=== PATIENT | male | born 1985 | race Caucasian/White ===

== ENCOUNTER 2018-03-19 18:31 | Emergency (ER) | payer BC ==
[2018-03-19] MEDS ORDERED: Lidocaine 2% Viscous Solution 15 ML Cup PO ONE (19:47)
[2018-03-19] MEDS ORDERED: Benzocaine 20% Topical Spray UD MUCMEM ONE (19:47)
--- NOTE | 2018-03-19 19:51 | EDM.PDOC ---
ED HPI GENERAL MEDICAL PROBLEM - General Chief Complaint: ENT Problem Stated Complaint: TOOTH ADSCESS Time Seen by Provider: 03/19/18 19:36 - History of Present Illness INITIAL COMMENTS - FREE TEXT/NARRATIVE: HISTORY AND PHYSICAL: History of present illness: The patient is a healthy 32-year-old male who presents with complaints of one year of dental issues after he broke apart of his right lower molar off. He has not seen a dentist for this and presents because he's having pain and he said that there was some swelling of his face. The patient said that there were some some swelling of the gum and he "poked it with a staple". He has no systemic complaints Review of systems: As per history of present illness and below otherwise all systems reviewed and negative. Past medical history: As per history of present illness and as reviewed below otherwise noncontributory. Surgical history: As per history of present illness and as reviewed below otherwise noncontributory. Social history: No reported history of drug or alcohol abuse. Family history: As per history of present illness and as reviewed below otherwise noncontributory. Physical exam: General: Well-developed well-nourished man who is nontoxic and vital signs are noted by me HEENT: Atraumatic, normocephalic, pupils reactive, negative for conjunctival pallor or scleral icterus, mucous membranes moist, throat clear, neck supple, nontender, trachea midline. There is no gross facial swelling appreciated and no cervical adenopathy. Teeth overall are in good condition with the exception of the right lower molar area where there is a small fracture of tooth #30 minimal swelling around the gum but no fluctuance. Lungs: Clear to auscultation, breath sounds equal bilaterally, chest nontender. Heart: S1S2, regular rate and rhythm no overt murmurs Abdomen: Soft, nondistended, nontender.NABS Pelvis: Deferred Genitourinary: Deferred. Rectal: Deferred. Extremities: Atraumatic, negative for cords or calf pain. Neurovascular unremarkable. Neuro: Awake, alert, oriented. Cranial nerves II through XII unremarkable. Cerebellum unremarkable. Motor and sensory unremarkable throughout. Exam nonfocal. Diagnostics: [] Therapeutics: Dental balls Impression: Dental pain/early infection Definitive disposition and diagnosis as appropriate pending reevaluation and review of above. dental pain Pain Score (Numeric/FACES): 10 - Related Data Allergies Allergy/AdvReac Type Severity Reaction Status Date / Time No Known Allergies Allergy Verified 03/19/18 19:32 Home Meds: Home Meds . [No Known Home Meds] 03/19/18 [History] Past Medical History HEENT History: Reports: None Cardiovascular History: Reports: None Respiratory History: Reports: None Gastrointestinal History: Reports: None Genitourinary History: Reports: None Musculoskeletal History: Reports: None Neurological History: Reports: None Psychiatric History: Reports: None Endocrine/Metabolic History: Reports: None Hematologic History: Reports: None Immunologic History: Reports: None Oncologic (Cancer) History: Reports: None Dermatologic History: Reports: None - Infectious Disease History Infectious Disease History: Reports: None - Past Surgical History Head Surgeries/Procedures: Reports: None Musculoskeletal Surgical History: Reports: Other (See Below) Other Musculoskeletal Surgeries/Procedures:: fracture jaw, nose & ribs Social & Family History - Family History Family Medical History: Noncontributory - Tobacco Use Smoking Status *Q: Current Some Day Smoker Years of Tobacco use: 15 Packs/Tins Daily: 1 - Recreational Drug Use Recreational Drug Use: No ED ROS GENERAL - Review of Systems Review Of Systems: ROS reveals no pertinent complaints other than HPI. ED EXAM, GENERAL - Physical Exam Exam: See Below (See dictation) Course - Vital Signs Last Recorded V/S: Last Vital Signs Temp 36.8 C 03/19/18 19:32 Pulse 88 03/19/18 19:32 Resp 18 03/19/18 19:32 BP 150/94 H 03/19/18 19:32 Pulse Ox 98 03/19/18 19:32 - Orders/Labs/Meds Orders: Active Orders 24 hr Category Date Time Status Benzocaine [Hurricaine One 20%] Med 03/19/18 19:47 Once 2 each MUCMEM ONETIME ONE Lidocaine 2% [Xylocaine 2% Viscous] Med 03/19/18 19:47 Once 15 ml PO ONETIME ONE Departure - Departure Time of Disposition: 19:50 Disposition: Home, Self-Care 01 Condition: Good Clinical Impression: Dental infection, Pain, dental - Discharge Information Referrals: PCP,None [Primary Care Provider] - Additional Instructions: The following information is given to patients seen in the emergency department who are being discharged to home. This information is to outline your options for follow-up care. We provide all patients seen in our emergency department with a follow-up referral. The need for follow-up, as well as the timing and circumstances, are variable depending upon the specifics of your emergency department visit. If you don't have a primary care physician on staff, we will provide you with a referral. We always advise you to contact your personal physician following an emergency department visit to inform them of the circumstance of the visit and for follow-up with them and/or the need for any referrals to a consulting specialist. The emergency department will also refer you to a specialist when appropriate. This referral assures that you have the opportunity for followup care with a specialist. All of these measure are taken in an effort to provide you with optimal care, which includes your followup. Under all circumstances we always encourage you to contact your private physician who remains a resource for coordinating your care. When calling for followup care, please make the office aware that this follow-up is from your recent emergency room visit. If for any reason you are refused follow-up, please contact the [facility] emergency department at and ask to speak to the emergency department charge nurse. [facility] Primary care- Internal [place] [address] Please use list of dentists you have been given here in the ED and try to connect with a local dentist for definitive care and treatment of this tooth problem. Use dental balls as shown and as needed as well as [id number] Tylenol and ibuprofen for pain. Take antibiotics you have been prescribed until they're finished. Return to ER as needed and as discussed. If your face become swollen please place ice on it - My Orders Last 24 Hours: My Active Orders 03/19/18 19:47 Benzocaine [Hurricaine One 20%] 2 each MUCMEM ONETIME ONE Lidocaine 2% [Xylocaine 2% Viscous] 15 ml PO ONETIME ONE - Assessment/Plan Last 24 Hours: My Active Orders 03/19/18 19:47 Benzocaine [Hurricaine One 20%] 2 each MUCMEM ONETIME ONE Lidocaine 2% [Xylocaine 2% Viscous] 15 ml PO ONETIME ONE
== END 2018-03-19 20:08 | disposition home or self-care (01) ==
LOC: MW.ED 18:31
DX: K04.7 Periapical abscess without sinus (principal); F17.210 Nicotine dependence, cigarettes, uncomplicated
CPT/HCPCS: 99282; A9270

== ENCOUNTER 2018-03-19 21:08 | Emergency (ER) | payer BC | END 2018-03-19 22:20 | disposition left against medical advice (07) | LOC: MW.ED 21:08 | DX: Z53.21 Procedure and treatment not carried out due to patient leaving prior to being seen by health care provider (principal) ==

== ENCOUNTER 2018-05-20 13:11 | Emergency (ER) | payer BC ==
[2018-05-20] MEDS ORDERED: Lidocaine 2% Viscous Solution 15 ML Cup PO ONE (13:30)
[2018-05-20] MEDS ORDERED: Benzocaine 20% Topical Spray UD MUCMEM ONE (13:30)
--- NOTE | 2018-05-20 13:35 | EDM.PDOC ---
ED HPI GENERAL MEDICAL PROBLEM - General Chief Complaint: ENT Problem Stated Complaint: TOTTHACHE ISSUES Time Seen by Provider: 05/20/18 13:25 - History of Present Illness INITIAL COMMENTS - FREE TEXT/NARRATIVE: HISTORY AND PHYSICAL: History of present illness: The patient is a healthy 32-year-old male who is here for recurrent right lower tooth pain and problems for which I saw him back in March. He admits that he put it off and procrastinated and did not go to see the dentist and thought that after the infection in January that "the nerve was " but he was chewing some gum and he thinks he aggravated the area. He has some minimal swelling at the gum area but no fevers chills sore throat and only has slight facial swelling. He made an appointment to see the dentist next week. He is here because he knows he needs antibiotics that he can get the tooth evaluated by the dentist. Review of systems: As per history of present illness and below otherwise all systems reviewed and negative. Past medical history: As per history of present illness and as reviewed below otherwise noncontributory. Surgical history: As per history of present illness and as reviewed below otherwise noncontributory. Social history: No reported history of drug or alcohol abuse. Family history: As per history of present illness and as reviewed below otherwise noncontributory. Physical exam: General: Well-developed well-nourished man who is nontoxic and vital signs are noted by me. There is no gross facial swelling on the right jaw area HEENT: Atraumatic, normocephalic, pupils reactive, negative for conjunctival pallor or scleral icterus, mucous membranes moist, throat clear, neck supple, nontender, trachea midline. There is some anterior cervical adenopathy on the right but no nuchal rigidity or posterior adenopathy. There is only one area of gross dental disease at tooth #31 where there is a fracture of the corner of the tooth and some tenderness there and some mild gum swelling but no fluctuance. Lungs: Clear to auscultation, breath sounds equal bilaterally, chest nontender. Heart: S1S2, regular rate and rhythm no overt murmurs Abdomen: Soft, nondistended, nontender. NABS Pelvis: Deferred Genitourinary: Deferred. Rectal: Deferred. Extremities: Atraumatic, negative for cords or calf pain. Neurovascular unremarkable. Neuro: Awake, alert, oriented. Cranial nerves II through XII unremarkable. Cerebellum unremarkable. Motor and sensory unremarkable throughout. Exam nonfocal. Diagnostics: [] Therapeutics: Dental balls Impression: Dental pain/dental fracture/dental Caries Definitive disposition and diagnosis as appropriate pending reevaluation and review of above. Right Lower Oral/Mouth Pain Score (Numeric/FACES): 7 - Related Data Allergies Allergy/AdvReac Type Severity Reaction Status Date / Time No Known Allergies Allergy Verified 05/20/18 13:28 Home Meds: Home Meds . [No Known Home Meds] 03/19/18 [History] Past Medical History HEENT History: Reports: None Cardiovascular History: Reports: None Respiratory History: Reports: None Gastrointestinal History: Reports: None Genitourinary History: Reports: None Musculoskeletal History: Reports: None Neurological History: Reports: None Psychiatric History: Reports: None Endocrine/Metabolic History: Reports: None Hematologic History: Reports: None Immunologic History: Reports: None Oncologic (Cancer) History: Reports: None Dermatologic History: Reports: None - Infectious Disease History Infectious Disease History: Reports: None - Past Surgical History Head Surgeries/Procedures: Reports: None Musculoskeletal Surgical History: Reports: Other (See Below) Other Musculoskeletal Surgeries/Procedures:: fracture jaw, nose & ribs Social & Family History - Family History Family Medical History: Noncontributory ED ROS GENERAL - Review of Systems Review Of Systems: ROS reveals no pertinent complaints other than HPI. ED EXAM, GENERAL - Physical Exam Exam: See Below (See dictation) Course - Vital Signs Last Recorded V/S: Last Vital Signs Temp 36.4 C 05/20/18 13:28 Pulse 67 05/20/18 13:28 Resp 18 05/20/18 13:28 BP 164/92 H 05/20/18 13:28 Pulse Ox 98 05/20/18 13:28 - Orders/Labs/Meds Meds: Medications Discontinued Medications Generic Name Dose Route Start Last Admin Trade Name Gianni PRN Reason Stop Dose Admin Benzocaine 2 each 05/20/18 13:30 Hurricaine One 20% MUCMEM 05/20/18 13:31 ONETIME ONE Lidocaine HCl 15 ml 05/20/18 13:30 Xylocaine 2% Viscous PO 05/20/18 13:31 ONETIME ONE Departure - Departure Time of Disposition: 13:34 Disposition: Home, Self-Care 01 Condition: Good Clinical Impression: Pain, dental - Discharge Information Referrals: PCP,None [Primary Care Provider] - Additional Instructions: The following information is given to patients seen in the emergency department who are being discharged to home. This information is to outline your options for follow-up care. We provide all patients seen in our emergency department with a follow-up referral. The need for follow-up, as well as the timing and circumstances, are variable depending upon the specifics of your emergency department visit. If you don't have a primary care physician on staff, we will provide you with a referral. We always advise you to contact your personal physician following an emergency department visit to inform them of the circumstance of the visit and for follow-up with them and/or the need for any referrals to a consulting specialist. The emergency department will also refer you to a specialist when appropriate. This referral assures that you have the opportunity for followup care with a specialist. All of these measure are taken in an effort to provide you with optimal care, which includes your followup. Under all circumstances we always encourage you to contact your private physician who remains a resource for coordinating your care. When calling for followup care, please make the office aware that this follow-up is from your recent emergency room visit. If for any reason you are refused follow-up, please contact the [facility] emergency department at and ask to speak to the emergency department charge nurse. [facility] Primary care- Internal Medicine and Family [address] [id number] These use dental balls as shown to you in the ED for pain and also use over-the- counter ibuprofen and Motrin. Please fill the prescription for antibiotics and take until they're finished. If your face starts swelling apply ice to the area. Please keep your appointment with the dentist that you have scheduled next week and return to ER as needed and as discussed
== END 2018-05-20 13:56 | disposition home or self-care (01) ==
LOC: MW.ED 13:11
DX: K08.89 Other specified disorders of teeth and supporting structures (principal)
CPT/HCPCS: 99283; A9270-GY

== ENCOUNTER 2019-04-22 06:33 | Emergency (ER) | payer SELFPAY ==
[2019-04-22] MEDS ORDERED: Sodium Chloride 0.9% 2.5 ML Syringe FLUSH PRN (06:46)
[2019-04-22] MEDS ORDERED: Sodium Chloride 0.9% 10 ML Syringe FLUSH PRN (06:46)
[2019-04-22] MEDS ORDERED: Ondansetron 4 MG/2 ML SDV IVPUSH ONE (06:46)
[2019-04-22] MEDS ORDERED: Sodium Chloride 0.9% 1,000 ML IV ONE ×2 (06:47→07:39)
--- NOTE | 2019-04-22 06:49 | EDM.PDOC ---
ED HPI GENERAL MEDICAL PROBLEM - General Chief Complaint: Gastrointestinal Problem Stated Complaint: VOMITING Time Seen by Provider: 04/22/19 06:43 Source of Information: Reports: Patient History Limitations: Reports: No Limitations - History of Present Illness INITIAL COMMENTS - FREE TEXT/NARRATIVE: History of present illness: []Patient has had intermittent vomiting and diarrhea for the last 5 days. French food last night started vomiting again this morning. She has been having cold chills, denies any abdominal pain at this time. Review of systems: As per history of present illness and below otherwise all systems reviewed and negative. Past medical history: As per history of present illness and as reviewed below otherwise noncontributory. Surgical history: As per history of present illness and as reviewed below otherwise noncontributory. Social history: No reported history of drug or alcohol abuse. Family history: As per history of present illness and as reviewed below otherwise noncontributory. Physical exam: General: Well developed, well nourished in NAD HEENT: Atraumatic, normocephalic, pupils reactive, negative for conjunctival pallor or scleral icterus, mucous membranes moist, throat clear, neck supple, nontender, trachea midline. Lungs: Clear to auscultation, breath sounds equal bilaterally, chest nontender. Heart: S1S2, regular, negative for clicks, rubs, or JVD. Abdomen: NABS, Soft, nondistended, nontender. Negative for masses or hepatosplenomegaly. Negative for costovertebral tenderness. Pelvis: Stable nontender. Genitourinary: Deferred. Rectal: Deferred. Extremities: Atraumatic, negative for cords or calf pain. Neurovascular unremarkable. Neuro: Awake, alert, oriented. Cranial nerves II through XII unremarkable. Cerebellum unremarkable. Motor and sensory unremarkable throughout. Exam nonfocal. Skin:warm and dry Diagnostics: CBC, chemistry, lipase Therapeutics: 2 L normal saline ED Course: Stable Impression: Vomiting, diarrhea Prescriptions: Zofran Plan: Take meds as directed, follow up with your primary care physician, return to ER if symptoms worsen or change. Definitive disposition and diagnosis as appropriate pending reevaluation and review of above. - Related Data Allergies Allergy/AdvReac Type Severity Reaction Status Date / Time No Known Allergies Allergy Verified 04/22/19 06:40 Home Meds: Home Meds Lisinopril 30 mg PO DAILY 04/22/19 [History] Ondansetron HCl [Zofran] 4 mg PO Q4HR #12 tablet 04/22/19 [Rx] Past Medical History HEENT History: Reports: None Cardiovascular History: Reports: None Respiratory History: Reports: None Gastrointestinal History: Reports: None Genitourinary History: Reports: None Musculoskeletal History: Reports: None Neurological History: Reports: None Psychiatric History: Reports: None Endocrine/Metabolic History: Reports: None Hematologic History: Reports: None Immunologic History: Reports: None Oncologic (Cancer) History: Reports: None Dermatologic History: Reports: None - Infectious Disease History Infectious Disease History: Reports: Chicken Pox - Past Surgical History Head Surgeries/Procedures: Reports: None Musculoskeletal Surgical History: Reports: Other (See Below) Other Musculoskeletal Surgeries/Procedures:: fracture jaw, nose & ribs Social & Family History - Family History Family Medical History: Noncontributory - Tobacco Use Smoking Status *Q: Current Some Day Smoker Years of Tobacco use: 10 Packs/Tins Daily: 0.5 - Caffeine Use Caffeine Use: Reports: Energy Drinks - Recreational Drug Use Recreational Drug Use: No ED ROS GENERAL - Review of Systems Review Of Systems: ROS reveals no pertinent complaints other than HPI. ED EXAM, GI/ABD - Physical Exam Exam: See Below (See history of present illness) Course - Vital Signs Last Recorded V/S: Last Vital Signs Temp 96.0 F 04/22/19 06:40 Pulse 54 L 04/22/19 08:01 Resp 16 04/22/19 08:01 BP 127/67 04/22/19 08:01 Pulse Ox 98 04/22/19 08:01 - Orders/Labs/Meds Orders: Active Orders 24 hr Category Date Time Status Sodium Chloride 0.9% [Normal Saline] 1,000 ml Med 04/22/19 07:39 Active IV .Bolus Sodium Chloride 0.9% [Saline Flush] Med 04/22/19 06:46 Active 10 ml FLUSH ASDIRECTED PRN Sodium Chloride 0.9% [Saline Flush] Med 04/22/19 06:46 Active 2.5 ml FLUSH ASDIRECTED PRN Saline Lock Insert [OM.PC] Stat Oth 04/22/19 06:46 Ordered Medication Orders Sodium Chloride (Normal Saline) 1,000 mls @ 999 mls/hr IV .Bolus ONE Stop: 04/22/19 08:39 Last Admin: 04/22/19 08:01 Dose: 999 mls/hr Sodium Chloride (Saline Flush) 10 ml FLUSH ASDIRECTED PRN PRN Reason: Keep Vein Open Last Admin: 04/22/19 07:11 Dose: 10 ml Sodium Chloride (Saline Flush) 2.5 ml FLUSH ASDIRECTED PRN PRN Reason: Keep Vein Open Last Admin: 04/22/19 07:11 Dose: 2.5 ml Labs: Laboratory Tests 04/22/19 04/22/19 Range/Units 07:05 07:05 WBC 5.38 (4.0-11.0) K/uL RBC 5.02 (4.50-5.90) M/uL Hgb 15.5 (13.0-17.0) g/dL Hct 44.5 (38.0-50.0) % MCV 88.6 (80.0-98.0) fL MCH 30.9 (27.0-32.0) pg MCHC 34.8 (31.0-37.0) g/dL RDW Std Deviation 40.5 (28.0-62.0) fl RDW Coeff of Dave 13 (11.0-15.0) % Plt Count 192 (150-400) K/uL MPV 10.70 (7.40-12.00) fL Neut % (Auto) 48.8 (48.0-80.0) % Lymph % (Auto) 34.0 (16.0-40.0) % Taylor % (Auto) 11.2 (0.0-15.0) % Eos % (Auto) 5.4 (0.0-7.0) % Baso % (Auto) 0.6 (0.0-1.5) % Neut # (Auto) 2.6 (1.4-5.7) K/uL Lymph # (Auto) 1.8 (0.6-2.4) K/uL Taylor # (Auto) 0.6 (0.0-0.8) K/uL Eos # (Auto) 0.3 (0.0-0.7) K/uL Baso # (Auto) 0.0 (0.0-0.1) K/uL Nucleated RBC % 0.0 /100WBC Nucleated RBCs # 0 K/uL Sodium 141 (136-148) mmol/L Potassium 4.1 (3.5-5.1) mmol/L Chloride 105 (98-107) mmol/L Carbon Dioxide 27.9 (21.0-32.0) mmol/L BUN 13 (7.0-18.0) mg/dL Creatinine 0.9 (0.8-1.3) mg/dL Est Cr Clr Drug Dosing 131.93 mL/min Estimated GFR (MDRD) > 60.0 ml/min Glucose 111 H (74-106) mg/dL Calcium 8.8 (8.5-10.1) mg/dL Total Bilirubin 0.4 (0.2-1.0) mg/dL AST 32 (15-37) IU/L ALT 46 (14-63) IU/L Alkaline Phosphatase 82 (46-116) U/L Total Protein 6.9 (6.4-8.2) g/dL Albumin 3.9 (3.4-5.0) g/dL Globulin 3.0 (2.6-4.0) g/dL Albumin/Globulin Ratio 1.3 (0.9-1.6) Lipase 113 (73-393) U/L Meds: Medications Generic Name Dose Route Start Last Admin Trade Name Freq PRN Reason Stop Dose Admin Sodium Chloride 1,000 mls @ 999 mls/hr 04/22/19 07:39 04/22/19 08:01 Normal Saline IV 04/22/19 08:39 999 mls/hr .Bolus ONE Administration Sodium Chloride 10 ml 04/22/19 06:46 04/22/19 07:11 Saline Flush FLUSH 10 ml ASDIRECTED PRN Administration Keep Vein Open Sodium Chloride 2.5 ml 04/22/19 06:46 04/22/19 07:11 Saline Flush FLUSH 2.5 ml ASDIRECTED PRN Administration Keep Vein Open Discontinued Medications Generic Name Dose Route Start Last Admin Trade Name Freq PRN Reason Stop Dose Admin Sodium Chloride 1,000 mls @ 999 mls/hr 04/22/19 06:47 04/22/19 07:09 Normal Saline IV 04/22/19 07:47 999 mls/hr .Bolus ONE Administration Ondansetron HCl 4 mg 04/22/19 06:46 04/22/19 07:10 Zofran IVPUSH 04/22/19 06:47 4 mg ONETIME ONE Administration Departure - Departure Time of Disposition: 08:23 Disposition: Home, Self-Care 01 Condition: Good Clinical Impression: Vomiting and diarrhea - Discharge Information *PRESCRIPTION DRUG MONITORING PROGRAM REVIEWED*: No *COPY OF PRESCRIPTION DRUG MONITORING REPORT IN PATIENT ANGI: No Prescriptions: Ondansetron HCl [Zofran] 4 mg PO Q4HR #12 tablet Referrals: PCP,None [Primary Care Provider] - Forms: ED Department Discharge Additional Instructions: The following information is given to patients seen in the emergency department who are being discharged to home. This information is to outline your options for follow-up care. We provide all patients seen in our emergency department with a follow-up referral. The need for follow-up, as well as the timing and circumstances, are variable depending upon the specifics of your emergency department visit. If you don't have a primary care physician on staff, we will provide you with a referral. We always advise you to contact your personal physician following an emergency department visit to inform them of the circumstance of the visit and for follow-up with them and/or the need for any referrals to a consulting specialist. The emergency department will also refer you to a specialist when appropriate. This referral assures that you have the opportunity for follow-up care with a specialist. All of these measure are taken in an effort to provide you with optimal care, which includes your follow-up. Under all circumstances we always encourage you to contact your private physician who remains a resource for coordinating your care. When calling for follow-up care, please make the office aware that this follow-up is from your recent emergency room visit. If for any reason you are refused follow-up, please contact the [facility] Emergency Department at and asked to speak to the emergency department charge nurse. Take meds as directed, follow up with your primary care physician, return to ER if symptoms worsen or change. [facility] Primary Care [address] [place] [phone] - My Orders Last 24 Hours: My Active Orders 04/22/19 06:46 Sodium Chloride 0.9% [Saline Flush] 10 ml FLUSH ASDIRECTED PRN Sodium Chloride 0.9% [Saline Flush] 2.5 ml FLUSH ASDIRECTED PRN Saline Lock Insert [OM.PC] Stat 04/22/19 07:39 Sodium Chloride 0.9% [Normal Saline] 1,000 ml IV .Bolus - Assessment/Plan Last 24 Hours: My Active Orders 04/22/19 06:46 Sodium Chloride 0.9% [Saline Flush] 10 ml FLUSH ASDIRECTED PRN Sodium Chloride 0.9% [Saline Flush] 2.5 ml FLUSH ASDIRECTED PRN Saline Lock Insert [OM.PC] Stat 04/22/19 07:39 Sodium Chloride 0.9% [Normal Saline] 1,000 ml IV .Bolus
[2019-04-22 07:44] LABS: CHLORIDE,CL 105 mmol/L (98-107); SODIUM,NA 141 mmol/L (136-148)
== END 2019-04-22 08:38 | disposition home or self-care (01) ==
LOC: MW.ED 06:33
DX: R11.10 Vomiting, unspecified (principal); R19.7 Diarrhea, unspecified; F17.210 Nicotine dependence, cigarettes, uncomplicated; Z79.899 Other long term (current) drug therapy
CPT/HCPCS: 36415; 80053; 83690; 85025; 96361; 96374; 99283; J2405; J7040